=== PATIENT | male | born 1970 | race Two or more races ===

== ENCOUNTER 2025-08-31 10:06 | Emergency (ER) | payer OTHER ==
[~2025-08-31] VITALS: Ht 167.6 cm; Wt 105.7 kg
[2025-08-31] MEDS ORDERED: ACETAMINOPHEN 500 MG GEL..CAP PO ONE ×2 (10:45→11:23)
[2025-08-31] MEDS ORDERED: HYDROCODONE/CHLORPHEN P-STIREX 5 ML ML PO ONE (10:45)
[2025-08-31] MEDS ORDERED: METHYLPREDNISOLONE SOD SUCC 125 MG VIAL IV ONE (10:45)
[2025-08-31] MEDS ORDERED: CETIRIZINE HCL 10 MG TABLET PO ONE (10:45)
[2025-08-31] MEDS ORDERED: METHYLPREDNISOLONE SOD SUCC 125 MG VIAL ONE (11:23)
[2025-08-31] MEDS ORDERED: CETIRIZINE HCL 5MG/5ML BLIST.PACK PO ONE (11:24)
[2025-08-31 12:39] LABS: COVID-19 AG NEGATIVE (NEGATIVE)
[2025-08-31 13:02] LABS: BASO % 0.9 % (0.1-1.2); EOS # 0.21 (0.04-0.54); EOS % 2.2 % (0.7-7.0); LYMPH # 1.93 (1.18-3.74); LYMPH % 19.8 % (19.3-53.1); MEAN PLATELET VOLUME 10.80 fl (9.4-12.4); MONO # 1.01 (0.24-0.82); MONO % 10.4 % (4.7-12.5); NEUT # 6.42 (1.56-6.13); NEUT % 65.9 % (34.0-71.1); RED CELL DISTRIBUTION WIDTH 12.8 % (11.6-14.4)
[2025-08-31] MEDS ORDERED: MUCINEX DM ER1 EAC1 PO (14:32)
[2025-08-31] MEDS ORDERED: PEPCID AC20 MG PO (14:32)
[2025-08-31] MEDS ORDERED: AZITHROMYCIN500 MG PO (14:32)
== END 2025-08-31 15:00 | disposition home or self-care (01) ==
LOC: ER 10:06
PROVIDERS: General Practice
DX: B34.9 Viral infection, unspecified (principal)